=== PATIENT | female | born 1975 | race African-American/Black ===

== ENCOUNTER 2016-09-20 11:46 | Emergency (ER) | payer MEDICAID ==
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
[2016-09-20 14:37] VITALS: BP 145/90
== END 2016-09-20 14:25 | disposition home or self-care (01) ==
LOC: ER 11:46
DX: G89.29 Other chronic pain (principal); M25.561 Pain in right knee; M25.462 Effusion, left knee; M25.562 Pain in left knee; Z98.890 Other specified postprocedural states; Z88.8 Allergy status to other drugs, medicaments and biological substances; F17.200 Nicotine dependence, unspecified, uncomplicated
CPT/HCPCS: 99283